=== PATIENT | male | born 1965 | race Caucasian/White ===

== ENCOUNTER 2019-06-03 13:19 | Outpatient (CLI) | payer BC, SELFPAY ==
--- NOTE | 2019-06-03 13:30 | USCV_ITS ---
Jimmy Parra Age: 53 Gender: M : 1965 Exam Date: 06/03/2019 13:51 Ordering Phys: Yobany Peguero MD ([email or web address]) Technologist: Abraham Chris Exam Location: [facility] [place] Indication: THOR AAA BP: 120 / 80 HR: 68 Rhythm: Sinus Technical Quality: Good MEASUREMENTS (Male / Female) Normal Values 2D ECHO LV Diastolic Diameter PLAX 5.7 cm 4.2 - 5.9 / 3.9 - 5.3 cm LV Systolic Diameter PLAX 3.5 cm IVS Diastolic Thickness 0.9 cm 0.6 - 1.0 / 0.6 - 0.9 cm IVS Systolic Thickness 1.3 cm LVPW Diastolic Thickness 0.9 cm 0.6 - 1.0 / 0.6 - 0.9 cm LVPW Systolic Thickness 1.3 cm LVOT Diameter 2.2 cm LV Ejection Fraction 2D Teich 67.6 % LV Ejection Fraction MOD 2C 55.3 % LV Ejection Fraction 2C AL 54.1 % LA Diameter 4.3 cm LA Width 3.2 cm LA Height 3.9 cm RA Width 2.7 cm RA Height 4.0 cm Aorta at Sinotubular Diameter 4.0 cm M-MODE LV Diastolic Diameter MM 6.9 cm 4.2 - 5.9 / 3.9 - 5.3 cm LV Systolic Diameter MM 4.7 cm LV Ejection Fraction MM Teich 57.9 % IVS Diastolic Thickness MM 0.9 cm 0.6 - 1.0 / 0.6 - 0.9 cm IVS Systolic Thickness MM 1.7 cm LVPW Diastolic Thickness MM 1.4 cm 0.6 - 1.0 / 0.6 - 0.9 cm LVPW Systolic Thickness MM 1.6 cm RV Diastolic Diameter MM 1.4 cm Aortic Annulus Diameter 4.0 cm LA Ao Ratio MM 1.1 MV E Point Septal Separation 1.3 cm DOPPLER AV Peak Velocity 121.0 cm/s LVOT Peak Velocity 103.0 cm/s AV Area Cont Eq vti 3.4 cm squared AV Area Cont Eq pk 3.2 cm squared MV Area PHT 5.0 cm squared Mitral E to A Ratio 0.8 MV E' Velocity 7.0 cm/s Mitral E to MV E' Ratio 9.8 Mitral E to LV E' Lateral Ratio 10.4 Mitral E to LV E' Septal Ratio 9.3 TR Peak Velocity 126.0 cm/s TR Peak Gradient 6.4 mmHg TV Peak E Velocity 80.0 cm/s Right Atrial Pressure 3.0 mmHg Pulmonary Artery Systolic Pressu 9.4 mmHg FINDINGS Left Ventricle Mild diffuse hypokinesia left ventricle with ejection fraction around 50%. Right Ventricle The right ventricle is normal in size and function. Right Atrium The right atrium is normal in size. Left Atrium The left atrium is normal in size. Mitral Valve Thickened mitral valve. Mild eccentric mitral regurgitation Aortic Valve Moderate aortic regurgitation . thickened aortic valve. Tricuspid Valve No gross abnormalities noted. Trace tricuspid valve regurgitation. Pulmonic Valve No gross abnormalities noted Pericardium Normal pericardium without effusion. Aorta Dilated aortic root measuring 4.6 cm just at the level of the isthumus CONCLUSIONS Mild diffuse hypokinesia left ventricle with ejection fraction around 50%. Dilated aortic root measuring 4.6 cm just at the level of the isthumus. The ascending aorta was not well visualized Moderate aortic regurgitation . thickened aortic valve. Thickened mitral valve. Mild eccentric mitral regurgitation. Trace tricuspid valve regurgitation. Compared to the study from 03/16/2016, there is slight decline in the LV ejection fraction. Since the ascending aorta was not visualized well, exact comparison is difficult. Dr Yobany Peguero MD [facility] (Electronically Signed) Final Date: 04 June 2019 23:57 S
== END 2019-06-03 13:20 | disposition home or self-care (01) ==
LOC: RAD 13:22
PROVIDERS: Visit Provider Internal Medicine Cardiovascular Disease
DX: I71.2 Thoracic aortic aneurysm, without rupture (principal); I08.1 Rheumatic disorders of both mitral and tricuspid valves
CPT/HCPCS: 93306

== ENCOUNTER → 2019-10-13 09:56 | Outpatient (BNVA) | payer BC, SELFPAY | PROVIDERS: Visit Provider Internal Medicine Cardiovascular Disease | DX: E78.2 Mixed hyperlipidemia (principal) | CPT/HCPCS: 80061; 80076 ==

== ENCOUNTER 2019-10-14 07:09 | Day surgery (SDC) | payer BC, SELFPAY ==
[2019-10-11 09:10] VITALS: BMI 25.7
[2019-10-14 07:26] VITALS: BP 117/79; PULSE 74; RESP 18; TEMP 36.1
[2019-10-14] MEDS: sodium chloride 0.9% 1,000 ML 30 ML IV (07:37)
--- NOTE | 2019-10-14 07:50 | ANES.PREANE2 ---
Pre-Anesthetic Assessment Pre-Anesthetic Assessment: Height/Weight: Height 1.85 m Weight 88.451 kg Temp Pulse Resp BP 97 F L 74 18 117/79 10/14/19 07:26 10/14/19 07:26 10/14/19 07:26 10/14/19 07:26 Proposed Procedure: Operation Date: 10/14/19 08:35 Proposed Procedures p Colonoscopy 75277 screen for colon cancer z12.11(Not Applicable) - Tay Finch MD Last intake: Intake Last Liquid Date 10/13/19 Last Liquid Time 23:00 Last Solid Date 10/12/19 Last Solid Time 21:00 Social: Social History: Alcohol (daily) and Tobacco Exam: Pre-Anes Outpt Exam: alert, oriented x 3, clear to auscultation bilaterally and regular rate & rhythm Airway: Submandibular: WNL Cervical ROM: WNL MP: 2 Dentition: Other (teeth ok) History/ROS: No significant history except as noted Pulmonary: Pulmonary: None reported CV/HEM: CV/HEM: HTN Comments: AAA 4.7CM : : None reported Hepatic: Hepatic: None reported GI: GI: GERD (controlled) Metabolic: Metabolic: Hyperlipidemia Musc/skel: Musc/skel: None reported Neuropsych: Neuropsych: None reported Anesthetic Plan: ASA status: 3 Anesthesia: Anesthesia Evaluation and MAC Risk of > 500 ml blood loss (7ml/kg in children): No Meds/Allergies Current Medications: Current Medications Generic Name Dose Route Start Last Admin Trade Name Freq PRN Reason Stop Dose Admin Sodium Chloride 1,000 mls @ 30 ml s/hr 10/14/19 07:15 10/14/19 07:37 Sodium Chloride 0.9% IV 10/15/19 07:14 30 mls/hr .Q24H CARL Administration PFSH Anesthesia PFSH: Medical History Dilated aortic root Data Anesthesia Cardiac Studies: No Data to Display
--- NOTE | 2019-10-14 07:58 | ANES.PREANE2 ---
Pre-Anesthetic Assessment Pre-Anesthetic Assessment: Height/Weight: Height 1.85 m Weight 88.451 kg Temp Pulse Resp BP 97 F L 74 18 117/79 10/14/19 07:26 10/14/19 07:26 10/14/19 07:26 10/14/19 07:26 Proposed Procedure: Operation Date: 10/14/19 08:35 Proposed Procedures p Colonoscopy 13763 screen for colon cancer z12.11(Not Applicable) - Tay Finch MD Last intake: Intake Last Liquid Date 10/13/19 Last Liquid Time 23:00 Last Solid Date 10/12/19 Last Solid Time 21:00 Social: Social History: Tobacco (chews) and No alcohol Exam: Pre-Anes Outpt Exam: alert, oriented x 3, clear to auscultation bilaterally and regular rate & rhythm Airway: Submandibular: WNL Cervical ROM: WNL MP: 2 Dentition: Other (teeth ok) History/ROS: No significant history except as noted Pulmonary: Pulmonary: COPD and VELEZ CV/HEM: CV/HEM: CAD (2 stents 2014) and HTN Comments: PPM : : None reported Hepatic: Hepatic: None reported GI: GI: None reported Metabolic: Metabolic: Hyperlipidemia Comments: Lupus Musc/skel: Musc/skel: OA/DJD and Weakness (gen) Neuropsych: Neuropsych: None reported Anesthetic Plan: ASA status: 3 Anesthesia: Anesthesia Evaluation and General Risk of > 500 ml blood loss (7ml/kg in children): No Meds/Allergies Current Medications: Current Medications Generic Name Dose Route Start Last Admin Trade Name Freq PRN Reason Stop Dose Admin Sodium Chloride 1,000 mls @ 30 ml s/hr 10/14/19 07:15 10/14/19 07:37 Sodium Chloride 0.9% IV 10/15/19 07:14 30 mls/hr .Q24H CARL Administration PFSH Anesthesia PFSH: Medical History Dilated aortic root Data Anesthesia Cardiac Studies: No Data to Display
--- NOTE | 2019-10-14 08:25 | W.PM.OPSFHP ---
Same Day Surgery H&P Indication for Procedure/HPI DATE OF PROCEDURE: October 14, 2019 CHIEF COMPLAINT/INDICATIONFOR SURGICAL PROCEDURE: Screening colonoscopy PREOP DIAGNOSIS: Screening colonoscopy PLANNED PROCEDRUE: Operation Date: 10/14/19 08:35 Proposed Procedures p Colonoscopy 43130 screen for colon cancer z12.11(Not Applicable) - Tay Finch MD This is a pleasant 54 years old gentleman referred to my practice for screening colonoscopy, patient denies any history of bleeding per rectum colon cancer or nonintentional weight loss, patient never had a colonoscopy before for screening purpose. ROS All systems have been reviewed negative except as per the above or per problem list Medications/Allergies* Home Medications Medication Instructions Recorded Confirmed Type aspirin 81 mg tablet,delayed 81 mg PO DAILY 08/04/19 10/14/19 History release metoprolol succinate 100 mg 100 mg PO DAILY 08/04/19 10/11/19 History tablet,extended release 24 hr omeprazole 20 mg capsule,delayed 20 mg PO DAILY 08/04/19 10/14/19 History release Allergies/Adverse Reactions Allergy/AdvReac Type Severity Reaction Status Date / Time Penicillins Allergy ALGY-Rash Verified 10/11/19 09:09 Current Medications: Generic Name Dose Route Start Last Admin Trade Name Freq PRN Reason Stop Dose Admin Sodium Chloride 1,000 mls @ 30 mls/hr 10/14/19 07:15 10/14/19 07:37 Sodium Chloride 0.9% IV 10/15/19 07:14 30 mls/hr .Q24H CARL Administration Pertinent History/Comorbid Conditions* Medical History (Updated 10/14/19 @ 07:51 by Tj Gupta MD) Dilated aortic root Pertinent Exam Findings alert, oriented x 3, clear to auscultation bilaterally, regular rate & rhythm and procedure specific exam findings (Abdominal examination nontender nondistended soft no peritonitis) Recommendations Surgery/Procedure today (Screening colonoscopy) Coding Level of Care Code Acute Machine Stuffer Automatic for Nga Vu
[2019-10-14 09:22] VITALS: BP 105/80; PULSE 65; RESP 16; TEMP 36.1; O2SAT 94
[2019-10-14 09:32] VITALS: BP 124/84; PULSE 61; RESP 18; O2SAT 98
--- NOTE | 2019-10-14 09:33 | PC.NURSE ---
INSTRUCTIONS GIVEN TO PT AND SPOUSE CONCERNING COLLECTION OF POLYP.
== END 2019-10-14 09:55 | disposition home or self-care (01) ==
PROVIDERS: Visit Provider Surgery
PROC: 0DJD8ZZ Inspection of Lower Intestinal Tract, Via Natural or Artificial Opening Endoscopic (ICD-10-PCS; CPT 45378; principal; 2019-10-14 08:30)
DX: Z12.11 Encounter for screening for malignant neoplasm of colon (principal); D12.5 Benign neoplasm of sigmoid colon; K57.30 Diverticulosis of large intestine without perforation or abscess without bleeding; Z79.82 Long term (current) use of aspirin; I10 Essential (primary) hypertension; E78.5 Hyperlipidemia, unspecified
CPT/HCPCS: 12345; 45380; 88305; J2704; J7030

== ENCOUNTER 2020-03-29 11:05 | Outpatient (CLI) | payer BC, SELFPAY ==
--- NOTE | 2020-03-29 | US_ITS ---
WS: [id number] Scrotal and testicular ultrasound, 03/29/2020 Clinical Data: RIGHT INGUINAL HERNIA Comparison: None. Findings: The right testes measures 4.8 cm x 2.9 cm x 2.5 cm. There is a small right hydrocele. The left testes measures 4.7 cm x 3.0 cm x 2.3 cm. There is a small left hydrocele. There is normal bilateral blood flow with no evidence of orchitis or torsion. No masses or abnormal c alcifications are noted. There is a 0.39 x 0.55 x 0.58 cm right epididymal cyst. US/US scrotum 13121 Impression: 1. Small bilateral hydroceles. 2. Small right epididymal cyst. 3. Negative testicular ultrasound.
== END 2020-03-29 11:06 | disposition home or self-care (01) ==
LOC: RADOUTREAD 12:45
PROVIDERS: Visit Provider Nurse Practitioner Family
DX: K40.90 Unilateral inguinal hernia, without obstruction or gangrene, not specified as recurrent (principal); N43.3 Hydrocele, unspecified; N50.3 Cyst of epididymis
CPT/HCPCS: 80061; 80076

== ENCOUNTER → 2020-04-22 09:47 | Outpatient (BNVA) | payer BC, SELFPAY | PROVIDERS: PCP Nurse Practitioner Family; Referring Provider Nurse Practitioner Family; Visit Provider Urology | DX: R36.1 Hematospermia (principal); N20.9 Urinary calculus, unspecified; K40.90 Unilateral inguinal hernia, without obstruction or gangrene, not specified as recurrent; N20.0 Calculus of kidney | CPT/HCPCS: 81003 ==

== ENCOUNTER 2020-05-26 13:14 | Outpatient (CLI) | payer BC, SELFPAY ==
--- NOTE | 2020-05-26 13:30 | CT_ITS ---
WS: [id number] CTA THORACIC TECHNIQUE: Contrast enhanced CTA of the thoracic aorta with coronal and sagittal reformatted images a nd maximum intensity projection (MIP) images. CLINICAL INFORMATION: I71.9 - Aortic aneurysm of unspecified site, without rupture COMPARISON: CTA thoracic aorta 10 ,018, 2017, 2016, and 2014. DLP: 1464.[address] scans at [facility] use at least one of these dose optimization techniques: automat ed exposure control; mA and/or kV adjustment per patient size (includes targeted exams where dose is matched to clinical indication); or iterative reconstruction. FINDINGS: Comparison multiple prior CTAs. No evidence of dissection or intramural hematoma in the noncontrast i maging. Mild aortic atheromatous disease in the thoracic aorta. Stable aneurysmal dilatation of the a scending thoracic aorta measuring 4.5 CM. Normal caliber aortic arch and descending thoracic aorta. N o evidence of aneurysm progression. Aortic root measures 4.5 cm unchanged. Mild chronic emphysematous changes. No acute pulmonary infiltrates. No consolidation or pleural fluid . No suspicious pulmonary parenchymal abnormalities. Coronary calcification in the LAD. Normal GE caitlin ction. No mediastinal or hilar lymphadenopathy. No axillary lymphadenopathy. Adrenal glands are normal. Normal caliber upper abdominal aorta. CT/CT angio chest 35877 IMPRESSION: 1. Aneurysmal dilatation ascending thoracic aorta measuring 4.5 cm is unchange d. No evidence of aneurysm progression. 2. Normal caliber descending thoracic aorta and upper abdominal aorta. 3. No mediastinal or hilar lymphadenopathy. 4. No acute pulmonary infiltrates. Lungs well aerated.
[2020-05-26] MEDS: iohexol 350 mg/mL 100 mL Btl IV (13:40)
== END 2020-05-26 13:15 | disposition home or self-care (01) ==
LOC: RADWPI 13:19
PROVIDERS: PCP Nurse Practitioner Family; Visit Provider Internal Medicine Cardiovascular Disease
DX: I71.9 Aortic aneurysm of unspecified site, without rupture (principal)
CPT/HCPCS: 71275; Q9967

== ENCOUNTER → 2020-07-15 13:32 | Outpatient (BNVA) | payer BC, SELFPAY | PROVIDERS: PCP Nurse Practitioner Family; Visit Provider Surgery | DX: Z20.822 Contact with and (suspected) exposure to COVID-19 (principal); K40.90 Unilateral inguinal hernia, without obstruction or gangrene, not specified as recurrent | CPT/HCPCS: 87635 ==

== ENCOUNTER 2020-07-20 07:59 | Day surgery (SDC) | payer BC, SELFPAY ==
[2020-07-19 15:20] VITALS: BMI 25.0
[2020-07-20] VITALS (7 sets, daily range): BP systolic 95–127; BP diastolic 61–79; PULSE 46–73; RESP 16–20; TEMP 36.3–36.8; O2SAT 94–98
--- NOTE | 2020-07-20 08:14 | P.HP_ITS ---
Same Day Surgery H&P Indication for Procedure/HPI DATE OF PROCEDURE: July 20, 2020 CHIEF COMPLAINT/INDICATIONFOR SURGICAL PROCEDURE: right iunguinaol hernia PREOP DIAGNOSIS: Right inguinal hernia PLANNED PROCEDRUE: Operation Date: 07/20/20 09:20 Proposed Procedures p LAPAROSCOPIC POSSOPEN RIGHT INGUINAL HERNIA WITH MESH- 20630 k40.90(Right) - Emmett Garcia MD Medications/Allergies* Home Medications Medication Instructions Recorded Confirmed Type aspirin 81 mg tablet,delayed 81 mg PO DAILY 08/04/19 07/20/20 History release omeprazole 20 mg capsule,delayed 20 mg PO DAILY 08/04/19 07/20/20 History release Allergies/Adverse Reactions Allergy/AdvReac Type Severity Reaction Status Date / Time Penicillins Allergy ALGY-Rash Verified 07/20/20 08:12 Pertinent History/Comorbid Conditions* Medical History (Updated 05/02/20 @ 11:05 by Emmett Garcia MD) Aortic regurgitation Aortic root aneurysm Hyperlipidemia Hypertension Renal calculus S/P extracorporeal shock wave therapy Surgical History (Updated 05/02/20 @ 11:05 by Emmett Garcia MD) H/O circumcision History of colonoscopy with polypectomy (~09/2019) History of facial surgery History of tonsillectomy Family History (Updated 10/15/19 @ 15:10 by Brittany Barlow RN) Chronic kidney disease (CKD) Cancer Denies family history of Anesthesia complication Bleeding disorder Social History Smoking and tobacco status: current every day smoker Alcohol intake: current Alcohol intake frequency: few times a week Adopted: No Caregiver/support person: No Lives independently: No Household members: spouse Marital status: Current occupational status: unemployed History of recent travel: No Pertinent Exam Findings alert, oriented x 3 and regular rate & rhythm Recommendations Surgery/Procedure today Coding Level of Care Code Acute Lens Grinder And Polisher for Nga Vu
[2020-07-20] MEDS: sodium chloride 0.9% 1,000 ML 30 ML IV (08:30)
--- NOTE | 2020-07-20 08:39 | ANES.PREANE2 ---
Pre-Anesthetic Assessment Pre-Anesthetic Assessment: Height/Weight: Height 1.85 m Weight 86.183 kg Temp Pulse Resp BP Pulse Ox 98.2 F 73 16 127/79 94 07/20/20 08:16 07/20/20 08:16 07/20/20 08:16 07/20/20 08:16 07/20/20 08:16 Preop Diagnosis: Right inguinal hernia Proposed Procedure: Operation Date: 07/20/20 09:20 Proposed Procedures p LAPAROSCOPIC POSSOPEN RIGHT INGUINAL HERNIA WITH MESH- 78236 k40.90(Right) - Emmett Garcia MD Familial anesthetic complications: None Was Beta Margaret taken within 24 hours: Yes Last intake: Intake Last Liquid Date 07/19/20 Last Liquid Time 21:00 Last Solid Date 07/19/20 Last Solid Time 21:00 Social: Social History: Alcohol and Tobacco Comment: drinks too much daily, last drink last night, denies seizur Exam: Pre-Anes Outpt Exam: alert, oriented x 3, clear to auscultation bilaterally and regular rate & rhythm Airway: Cervical ROM: WNL MP: 3 Dentition: Full CV/HEM: CV/HEM: HTN Comments: aortic root (4.5 cm) w/ mod AVR and mild MVR, able to do treadmill everyday GI: GI: GERD Metabolic: Metabolic: Hyperlipidemia Anesthetic Plan: ASA status: 3 Anesthesia: General Risk of > 500 ml blood loss (7ml/kg in children): No Meds/Allergies Current Medications: Current Medications Generic Name Dose Route Start Last Admin Trade Name Freq PRN Reason Stop Dose Admin Sodium Chloride 1,000 mls @ 30 ml s/hr 07/20/20 08:15 07/20/20 08:30 Sodium Chloride 0.9% IV 07/21/20 08:14 30 mls/hr .Q24H CARL Administration PFSH Anesthesia PFSH: Medical History Aortic regurgitation Aortic root aneurysm Hyperlipidemia Hypertension Renal calculus S/P extracorporeal shock wave therapy Surgical History H/O circumcision History of colonoscopy with polypectomy (~09/2019) History of facial surgery History of tonsillectomy Family History Other Cancer Chronic kidney disease (CKD) Denies family history of Anesthesia complication Bleeding disorder Social History Smoking and tobacco status: current every day smoker Alcohol intake: current Alcohol intake frequency: few times a week Adopted: No Caregiver/support person: No Lives independently: No Household members: spouse Marital status: Current occupational status: unemployed History of recent travel: No Data Anesthesia Cardiac Studies: No Data to Display
[2020-07-20] MEDS: vancomycin 1,000 MG in sodium chloride 0.9% 250 ML 250 MG IV (09:00)
[2020-07-20] MEDS: HYDROcodone-acetaminophen 5-325 mg Tablet 1 TAB PO (12:18)
--- NOTE | 2020-07-20 13:12 | SUR.PHASEII ---
1300 INFORMED PT THAT HE NEEDS TO GET UP AND POSSIBLY SIT ON SIDE OF BED AND PT REFUSED AT THIS TIME
[2020-07-20] MEDS: metoclopramide 5 mg/mL SDV 2 mL 10 MG IVP (13:32)
--- NOTE | 2020-07-20 13:48 | PM.OP ---
Operative Report Date of procedure: July 20, 2020 Pre-op Diagnosis: Right inguinal hernia Post-op Diagnosis: 1. Small direct right inguinal hernia 2. Lipoma of the spermatic cord Procedure Done: Laparoscopic total extraperitoneal repair of right direct inguinal hernia Excision of lipoma of the spermatic cord Specimens removed/disposition: None Surgeon: Emmett Garcia Anesthesia: General Condition: stable Disposition: PACU Procedure: The patient was taken to the operating room. After IV antibiotic was administered, the abdomen was prepped and draped in a sterile manner. Using a 15 blade, a 1.0 cm transverse incision was made infraumbilically on the right side. Subcutaneous tissue was divided using electrocautery and the anterior rectus sheath divided using an 11 blade. The rectus muscle was retracted laterally and the extraperitoneal space identified. A 11 mm port was placed and 12 mm of pneumoperitoneum was created. A 10 mm 30? scope was introduced and the retrorectus space was opened using the camera up to the pubic symphysis and 5 mm ports were placed in the midline, one 2-fingerbreadths above the pubic symphysis and the other midway between these two ports under direct visualization. Blunt dissection was carried out to open up the tissue in the midline and to the pubic symphysis, which was identified. The dissection was then carried laterally where the iliopubic tract was identified. There was no femoral or obturator hernia noted. There was a small direct hernia containing omentum which was reduced. The inferior epigastric artery was identified and dissection was carried posterior to it and laterally, the space was opened up to the level of the umbilicus superior to the anterior superior iliac spine. I then proceeded to dissect out the spermatic cord and the peritoneal reflection was reflected away from the spermatic cord and spermatic vessels. There was a large lipoma of the spermatic cord which was reduced and placed within the preperitoneal space. 16 x 11 cm Surgimax 3D mesh was rolled and introduced through the 10 mm port and rolled laterally and apposed well against the abdominal wall to cover the myopectineal orifice completely. 10 Cc of 0.5% Marcaine was infiltrated into the preperitoneal space. The extraperitoneal space was desufflated under direct visualization to ensure no slippage of hernial sac under the mesh. All ports were removed, the posterior rectus sheath was opened to release the pneumoperitoneum, the anterior rectus fascia at the infraumbilical port closed using figure of eight 0 Vicryl sutures, subcutaneous tissue approximated using 3-0 Vicryl sutures and skin at all three port sites were closed using running subcuticular 4-0 Monocryl sutures and Dermabond. 10 mL of 0.5% Marcaine was infiltrated at the port sites. The patient was stable throughout the procedure, extubated and transferred to recovery room.
--- NOTE | 2020-07-20 16:00 | ANE.PACU2 ---
Inpatient post-anesthesia follow up: Airway intact: Yes Vital signs: Temperature 98 F Pulse Rate 46 Respiratory Rate 20 Blood Pressure 103/71 Pulse Oximetry 98 Oxygen Delivery Me thod Room Air Oxygen Flow Rate 2 Fraction of Inspir ed Oxygen Hydration adequate: Yes Nausea and vomiting: No Pain level: 2 Mental status: Baseline
== END 2020-07-20 14:15 | disposition home or self-care (01) ==
PROVIDERS: PCP Nurse Practitioner Family; Visit Provider Surgery
PROC: (CPT 49650; principal; 2020-07-20 09:20)
DX: K40.90 Unilateral inguinal hernia, without obstruction or gangrene, not specified as recurrent (principal); D17.6 Benign lipomatous neoplasm of spermatic cord; I10 Essential (primary) hypertension; K21.9 Gastro-esophageal reflux disease without esophagitis; E78.5 Hyperlipidemia, unspecified; F17.210 Nicotine dependence, cigarettes, uncomplicated
CPT/HCPCS: 49650; 96365; 96374; C1781; J1100; J2405; J2704; J2710; J2765; J3010; J3370; J3490; J7030; J7050

== ENCOUNTER → 2020-11-10 11:57 | Outpatient (BNVA) | payer BC, SELFPAY | PROVIDERS: PCP Nurse Practitioner Family; Visit Provider Internal Medicine Cardiovascular Disease | DX: E78.2 Mixed hyperlipidemia (principal); I10 Essential (primary) hypertension | CPT/HCPCS: 80061; 80076 ==

== ENCOUNTER → 2021-05-08 08:51 | Outpatient (BNVA) | payer BC, SELFPAY | PROVIDERS: PCP Nurse Practitioner Family; Visit Provider Internal Medicine Cardiovascular Disease | DX: I71.9 Aortic aneurysm of unspecified site, without rupture (principal); I10 Essential (primary) hypertension; I35.1 Nonrheumatic aortic (valve) insufficiency; E78.2 Mixed hyperlipidemia | CPT/HCPCS: 80061; 80076 ==

== ENCOUNTER 2022-06-26 08:37 | Outpatient (CLI) | payer BC, SELFPAY ==
--- NOTE | 2022-06-26 08:30 | USCV_ITS ---
Jimmy Parra Age: 56 Gender: M : 1965 Exam Date: 06/26/2022 09:01 Ordering Phys: Yobany Peguero MD ([email or web address]) Technologist: Exam Location: [facility] [place] Indication: asending ao dilation BP: 125 / 84 HR: 70 Rhythm: Sinus Technical Quality: MEASUREMENTS (Male / Female) Normal Values 2D ECHO LV Diastolic Diameter PLAX 4.6 cm 4.2 - 5.9 / 3.9 - 5.3 cm LV Systolic Diameter PLAX 3.5 cm IVS Diastolic Thickness 1.0 cm 0.6 - 1.0 / 0.6 - 0.9 cm IVS Systolic Thickness 1.7 cm LVPW Diastolic Thickness 1.5 cm 0.6 - 1.0 / 0.6 - 0.9 cm LVPW Systolic Thickness 1.3 cm LVOT Diameter 2.1 cm LV Ejection Fraction 2D Teich 43.3 % LV Ejection Fraction MOD 2C 72.3 % LV Ejection Fraction 2C AL 73.7 % LA Diameter 3.5 cm Aorta at Sinotubular Diameter 4.5 cm M-MODE Aortic Annulus Diameter 3.6 cm LA Ao Ratio MM 1.0 MV E Point Septal Separation 1.4 cm DOPPLER AV Peak Velocity 121.0 cm/s LVOT Peak Velocity 99.0 cm/s AV Area Cont Eq vti 3.3 cm squared AV Area Cont Eq pk 2.8 cm squared MV Area PHT 5.0 cm squared Mitral E to A Ratio 0.7 MV E' Velocity 32.5 cm/s Mitral E to MV E' Ratio 7.2 Mitral E to LV E' Lateral Ratio 7.4 Mitral E to LV E' Septal Ratio 7.1 TR Peak Velocity 232.3 cm/s TR Peak Gradient 21.6 mmHg RV Acceleration Time 0.1 s FINDINGS Left Ventricle Normal left ventricular size and systolic function, EF 72 %. No regional wall motion abnormalities. Mild left ventricular hypertrophy. Right Ventricle The right ventricle is normal in size and function. Right Atrium The right atrium is normal in size. Left Atrium The left atrium is normal in size. Mitral Valve No gross abnormalities noted Aortic Valve Thickened aortic valve. Moderate aortic valve regurgitation. Tricuspid Valve Trace tricuspid valve regurgitation. Pulmonic Valve No gross abnormalities noted Pericardium Normal pericardium without effusion. Aorta Aortic root measured 5.5 cm at the level of the sinuses and 4.6 cm at the sinotubular junction. IVC The inferior vena cava appears normal. CONCLUSIONS Normal left ventricular size and systolic function, EF 72 %. No regional wall motion abnormalities. Mild left ventricular hypertrophy. Aortic root measured 5.5 cm at the level of the sinuses and 4.6 cm at the sinotubular junction. Thickened aortic valve. Moderate aortic valve regurgitation. Trace tricuspid valve regurgitation. Compared to the study from 06/03/2019, the diameter at the level of the sinuses appears to have slightly increased Consider CTA to better evaluate the aortic root Dr Yobany Peguero MD [facility] (Electronically Signed) Final Date: 27 June 2022 06:51 S
== END 2022-06-26 08:38 | disposition home or self-care (01) ==
PROVIDERS: PCP Nurse Practitioner Family; Visit Provider Internal Medicine Cardiovascular Disease
DX: I10 Essential (primary) hypertension (principal)
CPT/HCPCS: 93306

== ENCOUNTER 2022-07-27 08:22 | Outpatient (CLI) | payer BC, SELFPAY ==
--- NOTE | 2022-07-27 08:25 | CT_ITS ---
WS: [id number] CT CHEST WITH AND WITHOUT INTRAVENOUS CONTRAST HISTORY: further evaluation of aortic root TECHNIQUE: Contiguous 5 mm axial imaging performed on the thorax. Coronal and sagittal reformats are submitted. All CT scans at [facility] use at least one of these dose optimization techniques: automated exposure control; mA and/or kV adjustment per patient size (includes targeted exams where dose is matched to clinical indication); or iterative reconstruction. CONTRAST: Omnipaque 350; 95 mL IV. DLP: 840.81 mGy.cm COMPARISON: 05/26/2020 and 03/04/2018 Lungs and central airway: Pulmonary hyperexpansion. No mass or nodule. Pleura: Normal. No pleural effusion. Heart and pericardium: Normal size heart with no pericardial effusion. Mediastinum and danielle: No mediastinum or hilar adenopathy. Vessels: Please note this examination was ordered as a chest CT with and without contrast and not a C T angiogram. Nevertheless, adequate evaluation and opacification of the aorta. Maximum diameter of th e ascending aorta is 4.6 cm without increase in size. No dissection. No interval change in appearance of the aortic root or ascending aorta. Normal appearance of the descending thoracic aorta to the kyrie phragmatic hiatus. Pulmonary artery is normal size. Coronary artery calcifications are mild and scatt ered in the LEFT anterior descending coronary. Chest wall and lower neck: No soft tissue masses. Upper abdomen: Small hiatal hernia. Focal fatty sparing along the falciform ligament. No adrenal mass . Osseous structures: No destructive process. CT/CT chest wo/w con [id number] IMPRESSION: 1. Stable mild dilatation of the ascending thoracic aorta with a maximum diame ter 4.6 cm. No progression of dilatation and no dissection. 2. No adenopathy. 3. Mild LEFT anterior descending coronary artery calcification.
[2022-07-27] MEDS: iohexol 350 mg/mL 500 mL Btl (per mL) IV (08:26)
== END 2022-07-27 08:23 | disposition home or self-care (01) ==
PROVIDERS: Visit Provider Internal Medicine Cardiovascular Disease
DX: I71.9 Aortic aneurysm of unspecified site, without rupture (principal); I25.10 Atherosclerotic heart disease of native coronary artery without angina pectoris
CPT/HCPCS: 71270; Q9967

== ENCOUNTER 2023-07-26 12:35 | Outpatient (CLI) | payer OTHER, SELFPAY ==
--- NOTE | 2023-07-26 12:30 | CT_ITS ---
WS: [id number] CTA THORACIC TECHNIQUE: Contrast enhanced CTA of the thoracic aorta with coronal and sagittal reformatted images a nd maximum intensity projection (MIP) images. CLINICAL INFORMATION: Ascending aortic aneurysm COMPARISON: CT 07/27/2022 DLP: 815.[address] scans at [facility] use at least one of these dose optimization techniques: automated e xposure control; mA and/or kV adjustment per patient size (includes targeted exams where dose is matc hed to clinical indication); or iterative reconstruction. FINDINGS: Stable aneurysmal ascending thoracic aorta measuring 4.6 cm unchanged compared to previous. Normal ca liber descending thoracic aorta. Proximal main pulmonary arteries are normal. Coronary calcification with LAD calcification. No mediastinal or hilar lymphadenopathy. No axillary lymphadenopathy. Small esophageal hiatal hernia. Celiac and SMA are patent. Adrenal glands are normal. Fatty atrophy o f the pancreas. Mild thoracic kyphosis. Mild thoracic curve. Hypertrophic changes thoracic spine. Abdon gs are well aerated. No acute pulmonary infiltrates. IMPRESSION: 1. Stable aneurysmal ascending thoracic aorta measuring 4.6 cm unchanged compared to previous. 2. Lungs are well aerated. No acute pulmonary infiltrates. 3. No other suspicious findings.
[2023-07-26] MEDS: iohexol 350 mg/mL 500 mL Btl (per mL) IV (13:07)
== END 2023-07-26 12:36 | disposition home or self-care (01) ==
LOC: RAD 12:36
PROVIDERS: PCP Electrodiagnostic Medicine; Visit Provider Internal Medicine Cardiovascular Disease
DX: I35.1 Nonrheumatic aortic (valve) insufficiency (principal); I71.21 Aneurysm of the ascending aorta, without rupture
CPT/HCPCS: 71275; Q9967

== ENCOUNTER → 2023-12-10 12:23 | Outpatient (BNVA) | payer OTHER, SELFPAY | PROVIDERS: PCP Electrodiagnostic Medicine; Visit Provider Internal Medicine Cardiovascular Disease | DX: I10 Essential (primary) hypertension (principal) | CPT/HCPCS: 93005 ==

== ENCOUNTER 2024-12-08 07:18 | Outpatient (CLI) | payer OTHER, SELFPAY ==
[2024-12-08 07:58] LABS: Alanine Aminotransferase 41 U/L (0-41); Albumin Level 4.5 g/dL (3.5-5.2); Alkaline Phosphatase 68 U/L (40-130); Aspartate Amino Transferase 42 U/L (0-40); Globulin 2.4 g/dL (1.3-4.6); Total Protein 6.9 g/dL (6.6-8.7)
== END 2024-12-08 07:19 | disposition home or self-care (01) ==
PROVIDERS: PCP Electrodiagnostic Medicine; Visit Provider Internal Medicine Cardiovascular Disease
DX: E78.5 Hyperlipidemia, unspecified (principal)
CPT/HCPCS: 36415; 80076

== ENCOUNTER 2025-01-08 07:57 | Outpatient (CLI) | payer OTHER, SELFPAY ==
--- NOTE | 2025-01-08 08:00 | USCV_ITS ---
Jimmy Parra Age: 59 Gender: M : 1965 Exam Date: 01/08/2025 08:18 Ordering Phys: Yobany Peguero MD ([email or web address]) Technologist: STEPHANE [place] [facility] [place]: AR/Aortic Aneurysm BP: 156 / 94 HR: 69 Rhythm: Sinus Technical Quality: Adequate MEASUREMENTS (Male / Female) Normal Values 2D ECHO LV Diastolic Diameter PLAX 6.1 cm 4.2 - 5.9 / 3.9 - 5.3 cm IVS Diastolic Thickness 1.3 cm 0.6 - 1.0 / 0.6 - 0.9 cm IVS Systolic Thickness 1.7 cm LVPW Diastolic Thickness 1.4 cm 0.6 - 1.0 / 0.6 - 0.9 cm LVPW Systolic Thickness 1.7 cm LVOT Diameter 2.0 cm LV Ejection Fraction 2D Teich 60.9 % LV Ejection Fraction MOD 4C 67.3 % LV Ejection Fraction MOD 2C 45.0 % LV Ejection Fraction 2C AL 48.3 % LA Diameter 3.2 cm RA Systolic Volume 4C AL 24.5 ml RA Systolic Volume 4C MOD 23.1 ml LA Sys Volume AL 52.2 cm cubed LA Sys Volume Index AL 23.3 cm cubed/m squared IVC Diameter 2.1 cm M-MODE LA Ao Ratio MM 0.8 AV Cusp Separation MM 2.7 cm DOPPLER AV Peak Velocity 136.0 cm/s LVOT Peak Velocity 100.0 cm/s AV Area Cont Eq vti 2.5 cm squared AV Area Cont Eq pk 2.4 cm squared MV Peak Velocity 75.0 cm/s MV Area PHT 6.5 cm squared Mitral E to A Ratio 0.6 TR Peak Velocity 82.0 cm/s TR Peak Gradient 2.7 mmHg TV Peak E Velocity 72.0 cm/s PV Peak Velocity 79.0 cm/s FINDINGS Left Ventricle Normal left ventricular size and systolic function, around EF 60 %. No regional wall motion abnormalities. Mild left ventricular hypertrophy. Right Ventricle Normal right ventricular size and systolic function. Right Atrium Normal right atrial size. Left Atrium Normal left atrial size. Mitral Valve No gross abnormalities noted Aortic Valve [id number]-scnjjwko aortic valve regurgitation. At least 2 regurgitant jets Tricuspid Valve No gross abnormalities noted Pulmonic Valve Pulmonic valve not well visualized. Pericardium No pericardial effusion. Aorta The aorta at the level of the sinuses measured 5.1 cm. At the level of the isthmus it was measuring 4.67 and the ascending aorta measured 4.46 cm IVC Inferior vena cava not visualized. CONCLUSIONS Normal left ventricular size and systolic function, around EF 60 %. No regional wall motion abnormalities. Mild left ventricular hypertrophy. Nwun-oc-hzyixwli aortic valve regurgitation. At least 2 regurgitant jets. Dilated aortic root measuring 5.1 cm in diameter at the level of the sinuses and 4.46 at the level of the ascending aorta There is no pericardial effusion. There are no intracardiac masses. Compared to the previous study from 06/26/2022, there may not be a significant change Dr Yobany Peguero MD FACC (Electronically Signed) Final Date: 09 January 2025 12:21 S
== END 2025-01-08 07:58 | disposition home or self-care (01) ==
PROVIDERS: PCP Electrodiagnostic Medicine; Visit Provider Internal Medicine Cardiovascular Disease
DX: R06.09 Other forms of dyspnea (principal); I35.1 Nonrheumatic aortic (valve) insufficiency; I42.1 Obstructive hypertrophic cardiomyopathy; R93.1 Abnormal findings on diagnostic imaging of heart and coronary circulation
CPT/HCPCS: 93306

== ENCOUNTER 2025-02-22 13:59 | Outpatient (CLI) | payer OTHER, SELFPAY ==
--- NOTE | 2025-02-22 14:00 | CTR_ITS ---
PROCEDURE INFORMATION: Exam: CTA Chest With Contrast CTA Abdomen and Pelvis With Contrast Exam date and time: 02/22/2025 2:26 PM Age: 59 years old Clinical indication: Other: Enlarged aortic root; Prior surgery; Surgery date: 6+ months; Surgery type: Hernia; Additional info: Enlarged aortic root, visualize aortic root TECHNIQUE: Imaging protocol: Computed tomographic angiography of the chest with contrast. Exam focused on the arteries. Computed tomographic angiography of the abdomen and pelvis with contrast. Exam focused on the arteries. 3D rendering (Not supervised by radiologist): MIP and/or 3D reconstructed images were created by the technologist. Radiation optimization: All CT scans at this facility use at least one of these dose optimization techniques: automated exposure control; mA and/or kV adjustment per patient size (includes targeted exams where dose is matched to clinical indication); or iterative reconstruction. Contrast material: OMNI 350; Contrast volume: 100 ml; Contrast route: INTRAVENOUS (IV); COMPARISON: CT angio chest [id number] 07/26/2023 1:03 PM RADIATION DOSE METRICS: Total DLP (mGy-cm): 1172.76 FINDINGS: VASCULATURE: Pulmonary arteries: Normal. No pulmonary emboli. Aorta: Stable ascending thoracic aortic aneurysm measuring 4.6 cm in maximum transverse dimension. There is no dissection. Aortic root dilatation is also stable. Celiac and mesenteric arteries: No occlusion or significant stenosis. Renal arteries: No occlusion or significant stenosis. Right iliac arteries: No occlusion or significant stenosis. Left iliac arteries: No occlusion or significant stenosis. CHEST: Lungs: Unremarkable. No consolidation. No masses. Pleural spaces: Unremarkable. No pneumothorax. No pleural effusion. Heart: Unremarkable. No cardiomegaly. No pericardial effusion. Coronary arteries: Moderate coronary calcifications. Colonic diverticulosis especially in the sigmoid colon. No bowel dilatation. ABDOMEN AND PELVIS: Liver: No mass. Gallbladder and biliary ducts: Subtle irregularity of the gallbladder wall would be better assessed with ultrasound. A punctate calcified gallstone is seen near the gallbladder neck. Pancreas: Unremarkable. No mass. No ductal dilation. Spleen: Unremarkable. No splenomegaly. Adrenal glands: Unremarkable. No mass. Kidneys and ureters: 1-2 mm stone in the lower pole of the left kidney. Stomach and bowel: See Coronary arteries finding. Appendix: No evidence of appendicitis. Intraperitoneal space: Unremarkable. No free air. No significant fluid collection. Urinary bladder: Unremarkable. No mass. Reproductive: Unremarkable as visualized. Lymph nodes: Unremarkable. No enlarged lymph nodes. Bones/joints: Unremarkable. No acute fracture. Soft tissues: Small fat containing left inguinal hernia. CT/CT [facility] [id number] IMPRESSION: 1. Stable aneurysm of the ascending thoracic aorta. 2. Other findings as detailed above.
[2025-02-22 14:33] LABS: Blood Urea Nitrogen 6 mg/dL (8-23)
[2025-02-22] MEDS: iohexol 350 mg/mL 500 mL Btl (per mL) IV (14:38)
== END 2025-02-22 14:00 | disposition home or self-care (01) ==
LOC: RAD 14:00
PROVIDERS: PCP Electrodiagnostic Medicine; Visit Provider Internal Medicine Cardiovascular Disease
DX: I71.9 Aortic aneurysm of unspecified site, without rupture (principal); I25.84 Coronary atherosclerosis due to calcified coronary lesion; K57.30 Diverticulosis of large intestine without perforation or abscess without bleeding; I71.21 Aneurysm of the ascending aorta, without rupture; K80.20 Calculus of gallbladder without cholecystitis without obstruction; N20.0 Calculus of kidney
CPT/HCPCS: 71275; 74174; 82565; 84520